=== PATIENT | female | born 1960 | race African-American/Black ===

== ENCOUNTER 2021-12-12 02:07 | Emergency (ER) | payer OTHER ==
[2021-12-12 02:16] VITALS: BP 144/93; PULSE 80; RESP 20; TEMP 97.8; BMI 29.0
[2021-12-12 04:30] LABS: BASO % 0.5 % (0-2.0); EOS % 1.5 % (0-4.5); HEMATOCRIT 39.6 % (32.4-45.2); HEMOGLOBIN 13.5 GM/dL (10.7-15.3); LYMPH % 55.1 % (8-40); MCH 35.3 pg (25.7-33.7); MEAN CELL VOLUME 103.8 fl (80-96); MEAN PLT VOLUME 7.4 fl (7.5-11.1); MONO % 7.3 % (3.8-10.2); NEUT % 35.6 % (42.8-82.8); PLATELET COUNT 207 10^3/uL (134-434); RBC 3.82 M/mm3 (3.60-5.2); RDW 13.7 % (11.6-15.6); WHITE BLOOD COUNT 2.4 K/mm3 (4.0-10.0)
[2021-12-12 04:43] LABS: CALCIUM 9.4 mg/dL (8.5-10.1)
[2021-12-12 04:44] LABS: ALBUMIN 3.6 g/dl (3.4-5.0); BLOOD UREA NITROGEN 14.4 mg/dL (7-18)
[2021-12-12 04:47] LABS: CREATININE 0.7 mg/dL (0.55-1.3)
[2021-12-12 04:48] LABS: BILIRUBIN,TOTAL 0.9 mg/dL (0.2-1)
[2021-12-12 04:49] LABS: TOT PROT 7.4 g/dl (6.4-8.2)
== END 2021-12-12 05:14 | disposition home or self-care (01) ==
LOC: JER 02:07
DX: N93.9 Abnormal uterine and vaginal bleeding, unspecified (principal)
CPT/HCPCS: 36415; 80053; 84703; 85025; 86850; 86870; 86900; 86901; 86902; 99283-25

== ENCOUNTER 2022-03-27 12:02 | Emergency (ER) | payer OTHER ==
[2022-03-27 12:33] VITALS: BP 133/87; PULSE 69; RESP 18; TEMP 98; BMI 27.4
[2022-03-27] MEDS ORDERED: ONDANSETRON 4 MG/2 ML VIAL IVPUSH ONE (13:27)
[2022-03-27] MEDS ORDERED: MECLIZINE HCL 25 MG TABLET (FP) PO ONE (13:28)
[2022-03-27] MEDS ORDERED: LACTATED RINGERS SOLUTION 1000 ML INFUS.BAG IV ONE (13:30)
[2022-03-27] MEDS ORDERED: MECLIZINE HCL 25 MG TABLET (FP) ONE (13:42)
[2022-03-27] MEDS ORDERED: ONDANSETRON 4 MG/2 ML VIAL ONE (13:42)
[2022-03-27 14:01] LABS: HEMATOCRIT 42.9 % (32.4-45.2); MCHC 32.7 g/dl (32.0-36.0); MEAN CELL VOLUME 101.2 fl (80-96); PLATELET COUNT 195 10^3/uL (134-434); RBC 4.24 M/mm3 (3.60-5.2); WHITE BLOOD COUNT 2.8 K/mm3 (4.0-10.0)
[2022-03-27 14:23] LABS: ALBUMIN 3.7 g/dl (3.4-5.0); CALCIUM 9.9 mg/dL (8.5-10.1)
[2022-03-27 14:24] LABS: BLOOD UREA NITROGEN 9.7 mg/dL (7-18)
[2022-03-27 14:26] LABS: CREATININE 0.6 mg/dL (0.55-1.3)
[2022-03-27 14:28] LABS: BILIRUBIN,TOTAL 1.5 mg/dL (0.2-1); TOT PROT 7.5 g/dl (6.4-8.2)
== END 2022-03-27 16:30 | disposition home or self-care (01) ==
LOC: JER 12:02
PROC: 3E033GC Introduction of Other Therapeutic Substance into Peripheral Vein, Percutaneous Approach (ICD-10-PCS; principal; 2022-03-27)
DX: R42 Dizziness and giddiness (principal); R11.10 Vomiting, unspecified
CPT/HCPCS: 36415; 70450-TC; 71046-TC-FY; 80053; 83690; 84484; 85027; 93005; 93010; 99285-25